=== PATIENT | male | born 1990 | race Two or more races ===

== ENCOUNTER 2025-03-13 23:00 | Inpatient (IN) | payer MEDICAID, OTHER ==
[~2025-03-13] VITALS: Ht 177.8 cm; Wt 104.2 kg
[2025-03-13] MEDS ORDERED: HYDROmorphone HCL 2 MG/ML VL/or syr IM ONE (23:15)
[2025-03-13] MEDS ORDERED: ONDANSETRON HCL 4 MG/2 ML VIAL IM ONE (23:15)
[2025-03-13 23:40] LABS: Hemoglobin 15.3 g/dL (13.5-17.5)
[2025-03-13 23:42] LABS: Hematocrit 47.5 % (41.0-53.0); Mean Corpuscular Hemoglobin 23.4 pg (28.0-32.0); Mean Corpuscular Volume 72.4 fL (80.0-100.0); Nucleated Red Blood Cells % 0.1 %
[2025-03-13 23:54] LABS: Alkaline Phosphatase 92 U/L (46-116); Anion Gap 12 (5-15); BUN/Creatinine Ratio 11.4 (10.0-20.0); Blood Urea Nitrogen 13 mg/dL (9-23); Calcium 9.3 mg/dL (8.7-10.4); Carbon Dioxide 22 mmol/L (20-31); Chloride 100 mmol/L (98-107); Lipase 42 U/L (12-53); Potassium 3.7 mmol/L (3.5-5.1); Total Protein 7.6 g/dL (5.7-8.2)
[2025-03-13 23:55] LABS: Bilirubin, Total 0.6 mg/dL (0.2-1.0)
--- NOTE | 2025-03-13 23:57 | DVH ---
COMPUTERIZED TOMOGRAPHY ABDOMEN AND PELVIS WITHOUT CONTRAST REASON FOR EXAM: Acute epigastric pain COMPARISON: None TECHNIQUE: Spiral scans were acquired from the diaphragm to the symphysis pubis without intravenous c ontrast administration. 2-D coronal and sagittal reformatted images were provided. Radiation optimiza tion: All CT scans at this facility use at least one of these dose optimization techniques: Automated exposure control mA and/or kV adjustment per patient size (includes targeted exams where dose is mat ched to clinical indication) or iterative reconstruction. RADIATION DOSE: CTDI: 19 mGy DLP: 1202 mGy-cm FINDINGS: There is mild dependent atelectasis in bilateral lower lobes of the lungs. There is no pleural effus ion. There is no pericardial effusion. The spleen is not enlarged. The liver is normal in size and contour. No calcified gallstone is identi fied. There is no pericholecystic edema. Evaluation of the abdominal organs is suboptimal in the ab sence of intravenous contrast. Unenhanced appearance of the pancreas is unremarkable. There is trace perihepatic fluid. There is trace fluid in the dependent pelvis. There is trace pneumoperitoneum in the upper abdomen adjacent to the gastric antrum and under the left hemidiaphragm. There is thickenin g of the gastric antrum. There is inflammatory change about the gastric antrum. The adrenal glands ar e normal. The kidneys are similar in size. There is no hydronephrosis of either kidney. There is no a bdominal aortic aneurysm. There is no pathologic distention of the small bowel to suggest obstruction . The prostate and seminal vesicles are within normal limits. The urinary bladder is grossly unrema rkable. The colonic stool burden is small. The appendix is not seen. No acute osseous abnormality is identified. IMPRESSION: Thickening of the gastric antrum with surrounding inflammatory change and scattered trace pneumoperit oneum and trace free fluid. This is most consistent with perforation of the gastric antrum.
[2025-03-14] VITALS (42 sets, daily range): BP systolic 108–159; BP diastolic 65–95; PULSE 88–120; RESP 14–31; TEMP 98–99.8; O2SAT 90–99
[2025-03-14 00:01] LABS: Alanine Aminotransferase 43 U/L (7-40); Albumin 5.0 g/dL (3.2-4.8); Glucose 134 mg/dL (74-106); Sodium 134 mmol/L (136-145)
[2025-03-14] MEDS: PANTOPRAZOLE 40 MG/10 ML VIAL INJ IV ONE (00:53)
[2025-03-14] MEDS: CEFEPIME 1GM/ 50ML 50 ML IV SCH (00:54)
[2025-03-14] MEDS: ONDANSETRON HCL 4 MG/2 ML VIAL IV ONE (00:54)
[2025-03-14] MEDS: VANCOMYCIN 1GM/200ML PM 200 ML IV ONE (00:54)
--- NOTE | 2025-03-14 01:15 | DVH ---
INDICATION: Shortness of breath TECHNIQUE: Frontal view of the chest. COMPARISON: None FINDINGS/IMPRESSION: Low lung volumes. Prominence of the interstitial lung markings. Unremarkable cardiomediastinal silh ouette. No pleural effusion or pneumothorax. There is lucency underlying the left hemidiaphragm, if there is clinical concern for pneumoperitoneum, CT abdomen / pelvis may be beneficial further evalua tion.
[2025-03-14] MEDS: HYDROmorphone HCL 2 MG/ML VL/or syr IV ONE ×2 (01:16→01:52)
[2025-03-14 01:20] LABS: INR 1.07 (0.9-1.15); Partial Thromboplastin Time 26.0 SEC (24.5-34.5); Prothrombin Time 11.3 sec (9.3-11.8)
[2025-03-14 01:43] LABS: Lactic Acid w/Reflex 2.5 mmol/L (0.4-2.0)
--- NOTE | 2025-03-14 01:58 | ED.PDOC ---
GI ASSESSMENT HPI Comments 34-year-old male who arrives the ED today with complaints of severe abdominal pain for the past day. Patient states he has had abdominal pain concerns over the past three days. Patient states he was seen at [facility] from day ago and sent home with a diagnosis of gastritis. Patient arrives today stating the pain has worsened. Patient denies any fever but states intermittent nausea. Patient was in pain and therefore, vital signs were mildly hypertensive, mildly tachypneic and mildly tachycardic at arrival. Chief Complaint: Abdominal Pain Time Seen by MD: 23:01 Reviewed Notes: Nurses Notes Allergies: Coded Allergies: No Known Drug Allergy (Verified Allergy, Unknown, 03/13/25) Information Source: Patient Mode of Arrival: Ambulatory Timing: Days Duration: Since onset Prehospital treatment: None Quality: Aching, Cramping Vomitus: Food Particles, Soft, Watery Severity: Severe Recent: Other (Recent gastritis diagnosis) Recent Hx of: None Pain Location: Diffuse, Epigastric Modifying Factors: Food Associated sign and symptoms: Nausea, Vomiting, Abdominal Pain Past Medical History PAST MEDICAL HISTORY: Denies Surgical History: Denies all surgeries Family History Family History: Reviewed,noncontributory to illness, No family hx of Cancer, No family hx of DM, No family hx of Heart marko, No family hx of HTN, No family hx ofKidney marko, No family hx of Liver marko, No family hx of Lung marko, No family hx of Stroke Social History Smoker: Non-Smoker Alcohol: Denies ETOH Use Drugs: Denies Drug Use Lives In: Home Constitutional: denies: chills, diaphoresis, fatigue, fever, malaise, sweats, weakness, others EENTM: denies: blurred vision, double vision, ear bleeding, ear discharge, ear drainage, ear pain, ear ringing, eye pain, eye redness, hearing loss, mouth pain, mouth swelling, nasal discharge, nose bleeding, nose congestion, nose pain, photophobia, tearing, throat pain, throat swelling, voice changes, others Respiratory: denies: cough, hemoptysis, orthopnea, SOB at rest, shortness of breath, SOB with excertion, stridor, wheezing, others Cardiovascular: denies: chest pain, dizzy spells, diaphoresis, Dyspnea on exertion, edema, irregular heart beat, left arm pain, lightheadedness, palpitations, PND, syncope, others Gastrointestinal: reports: abdominal pain, nausea, vomiting; denies: abdomen distended, blood streaked bowels, constipated, diarrhea, dysphagia, difficulty swallowing, hematemesis, melena, poor appetite, poor fluid intake, rectal bleeding, rectal pain, others Genitourinary: denies: burning, dysuria, flank pain, frequency, hematuria, incontinence, penile discharge, penile sore, pain, testicle pain, testicle s welling, urgency, others Neurological: denies: dizziness, fainting, headache, left sided numbness, left sided weakness, numbness, paresthesia, pre-existing deficit, right sided numbness, right sided weakness, seizure, speech problems, tingling, tremors, weakness, others Musculoskeletal: denies: back pain, gout, joint pain, joint swelling, muscle pain, muscle stiffness, neck pain, others Integumetry: denies: bruises, change in color, change in hair/nails, dryness, laceration, lesions, lumps, rash, wounds, others Allergic/Immunocompromised: denies: Difficulty Healing, Frequent Infections, Hives, Itching, others Hematologic/Lymphatic: denies: anemia, blood clots, easy bleeding, easy bruising, swollen glands, others Endocrine: denies: excessive hunger, excessive sweating, excessive thirst, excessive urination, flushing, intolerance to cold, intolerance to heat, unexplained weight gain, unexplained weight loss, others Psychiatric: denies: anxiety, bipolar disorder, depression, hopeless, panic disorder, schizophrenia, sleepless, suicidal, others Physical Exam General Appearance: Moderate Distress (Moderate distress due to significant abdominal pain concerns.), Normal HEENT: Normal ENT Inspection, Pharynx Normal, TMs Normal Neck: Full Range of Motion, Non-Tender, Normal, Normal Inspection Respiratory: Chest Non-Tender, Lungs Clear, No Accessory Muscle Use, No Respiratory Distress, Normal Breath Sounds Cardiovascular: No Edema, No JVD, No Murmur, No Gallop, Normal Peripheral Pulses, Regular Rate/Rhythm Breast Exam: Deferred Gastrointestinal: Other (Diffuse bilateral epigastric tenderness to palpation throughout. Abdomen was moderately rigid. No signs of trauma.) Genitalia: Deferred Pelvic: Deferred Rectal: Deferred Extremities: No calf tenderness, Normal capillary refill, Normal inspection, Normal range of motion, Non-tender, No pedal edema Neurologic: Alert, No Motor Deficits, Normal Affect, Normal Mood, No Sensory Deficits Cerebellar Function: Normal Reflexes: Normal Skin: Dry, Normal Color, Warm Lymphatic: No Adenopathy Was a procedure done? Was a procedure done?: No GI differential Dx Differential Diagnosis: Appendicitis, Bowel Obstruction, Cholangitis, Cholecystitis, Constipation, Ischemic Bowel, Pancreatitis, UTI X-Ray, Labs, Meds, VS Vital Signs Date Time Temp Pulse Resp B/P (MAP) Pulse Ox O2 Delivery O2 Flow Rate FiO2 03/14/25 01:16 90 24 125/71 03/14/25 00:35 98.6 90 24 125/71 (89) 93 98.6 03/14/25 00:35 90 24 93 Room Air* 0 21 03/13/25 23:01 97.6 92 22 145/67 94 97.6 Lab Test 03/14/25 00:52 03/13/25 23:25 Range/Units Lactic Acid Level 2.5 *H 0.4-2.0 mmol/L White Blood Count 25.5 H 4.4-10.8 10^3/uL Red Blood Count 6.57 H 4.5-5.90 10^6/uL Hemoglobin 15.3 13.5-17.5 g/dL Hematocrit 47.5 41.0-53.0 % Mean Corpuscular Volume 72.4 L 80.0-100.0 fL Mean Corpuscular Hemoglobin 23.4 L 28.0-32.0 pg Mean Corpuscular Hemoglobin Concent 32.3 32.0-36.0 g/dL Red Cell Distribution Width 16.6 H 11.8-14.3 % Platelet Count 446 140-450 10^3/uL Mean Platelet Volume 8.4 6.9-10.8 fL Neutrophils (%) (Auto) 88.7 H 37.0-80.0 % Lymphocytes (%) (Auto) 6.5 L 10.0-50.0 % Monocytes (%) (Auto) 4.4 0.0-12.0 % Eosinophils (%) (Auto) 0.1 0.0-7.0 % Basophils (%) (Auto) 0.3 0.0-2.0 % Neutrophils # (Auto) 22.6 H 1.6-8.6 10 ^3/uL Lymphocytes # (Auto) 1.7 0.4-5.4 10 ^3/uL Monocytes # (Auto) 1.1 0-1.3 10 ^3/uL Eosinophils # (Auto) 0 0-0.8 10 ^3/uL Basophils # (Auto) 0.1 0-0.2 10 ^3/uL Nucleated Red Blood Cells 0.1 % Prothrombin Time 11.3 9.3-11.8 sec Prothrombin Time INR 1.07 0.9-1.15 Activated Partial Thromboplast Time 26.0 24.5-34.5 SEC Sodium Level 134 L 136-145 mmol/L Potassium Level 3.7 3.5-5.1 mmol/L Chloride Level 100 98-107 mmol/L Carbon Dioxide Level 22 20-31 mmol/L Anion Gap 12 5-15 Blood Urea Nitrogen 13 9-23 mg/dL Creatinine 1.14 0.700-1.30 mg/dL Glomerular Filtration Rate Calc 87 >90 mL/min BUN/Creatinine Ratio 11.4 10.0-20.0 Serum Glucose 134 H 74-106 mg/dL Calcium Level 9.3 8.7-10.4 mg/dL Total Bilirubin 0.6 0.2-1.0 mg/dL Aspartate Amino Transferase (AST) 26 13-40 U/L Alanine Aminotransferase (ALT) 43 H 7-40 U/L Alkaline Phosphatase 92 46-116 U/L Total Protein 7.6 5.7-8.2 g/dL Albumin 5.0 H 3.2-4.8 g/dL Lipase 42 12-53 U/L Current Medications Medications (Trade) Dose Ordered Sig/Caryl Route Start Time Stop Time Status Last Admin Vancomycin HCl 200 ml @ 200 mls/hr ONCE ONCE IV 03/14/25 00:45 03/14/25 01:44 DC 03/14/25 00:54 Hydromorphone HCl (Dilaudid Injection) 1 mg ONCE ONCE IV 03/14/25 00:45 03/14/25 00:46 DC 03/14/25 01:16 Ondansetron HCl (Zofran) 4 mg ONCE ONCE IV 03/14/25 00:45 03/14/25 00:46 DC 03/14/25 00:54 Pantoprazole Sodium (Protonix) 40 mg ONCE ONCE IV 03/14/25 00:45 03/14/25 00:46 DC 03/14/25 00:53 X-Ray, Labs, Meds, VS Comment All studies performed the ED were evaluated by me personally. [place] studies [place] [id number]. Additional findings of elevated lactic acid were noted. CT of the abdomen and pelvis revealed a thickening of the gastric antrum with surrounding inflammatory changes and scattered trace pneumoperitoneum and trace free fluid. This seems to be consistent with a perforation of the gastric antrum. Patient will be admitted for pain management as well as GI consultation to assess possible surgical needs. Time of 1ST Reevaluation: 01:55 Reevaluation 1ST: Improved Consultation: PCP, Surgery Patient Education/Counseling: Diagnosis, Treatment Family Education/Counseling: Diagnosis, Treatment SEPSIS Sepsis Screen Date sepsis recognized/suspect: Mar 14, 2025 Time Sepsis recognized/suspect: 131 Recent Procedure: No On Antibiotic Therapy: Yes Respiratory Rate >20: Yes Heart Rate >90: No Temp<36 C (96.8 F) or >38.3 C: No SBP <90 or MAP <65 mmHG: No New Acute Mental Status Change: No Is the patient on CPAP, BIPAP,: No Physician Orders Urinalysis (03/13/25 23:12) Ct Ab Pel Wo Con-No Oral Or Iv (03/13/25 23:12) Urinalysis (03/14/25 00:32) Chest Portable (03/14/25 00:32) Accucheck (03/14/25 00:32) Blood Culture (03/14/25 00:32) Cefepime 1gm/ 50ml (Maxipime 1gm/50ml) (03/14/25 01:00) Notify Md If Map <65 Or Bp<90 (03/14/25 00:32) If Map<65 Start Vasopressor (03/14/25 00:32) Sepsis Reassesment After Fluid (03/14/25 01:32) Sodium Chloride 0.9% (03/14/25 00:45) Hydromorphone Injection (Dilaudid Inject (03/14/25 02:00) Sodium Chloride 0.9% (03/14/25 02:00) Npo (Nothing By Mouth) Diet (03/14/25 Breakfast) Vital Signs Date Time Temp Pulse Resp B/P (MAP) Pulse Ox O2 Delivery O2 Flow Rate FiO2 03/14/25 01:16 90 24 125/71 03/14/25 00:35 98.6 90 24 125/71 (89) 93 98.6 03/14/25 00:35 90 24 93 Room Air* 0 21 03/13/25 23:01 97.6 92 22 145/67 94 97.6 Laboratory Tests Test 03/13/25 23:25 03/14/25 00:52 White Blood Count 25.5 10^3/uL (4.4-10.8) H Lactic Acid Level 2.5 mmol/L (0.4-2.0) *H Medications Medications Dose Ordered Sig/Caryl Route Start Time Stop Time Status Last Admin Dose Admin Hydromorphone HCl 1 mg ONCE ONCE IV 03/14/25 00:45 03/14/25 00:46 DC 03/14/25 01:16 Ondansetron HCl 4 mg ONCE ONCE IV 03/14/25 00:45 03/14/25 00:46 DC 03/14/25 00:54 Pantoprazole Sodium 40 mg ONCE ONCE IV 03/14/25 00:45 03/14/25 00:46 DC 03/14/25 00:53 Vancomycin HCl 200 ml @ 200 mls/hr ONCE ONCE IV 03/14/25 00:45 03/14/25 01:44 DC 03/14/25 00:54 Departure 1 Departure Time of Disposition: 01:56 Impression: Primary Impression: Gastric perforation Additional Impressions: Leukocytosis Elevated lactic acid level Disposition: ADMITTED INPATIENT Condition: Fair Discharged With: Self, Spouse Critical Care Note Critical Care Time?: No Stability Stability form required: No Heart Score Heart Score: Heart Score Response (Comments) Value History N/A 0 EKG N/A 0 Age N/A 0 Risk Factors N/A 0 Troponin N/A 0 Total 0 BELKIS BENSON PAC Mar 14, 2025 01:57
[2025-03-14] MEDS: SODIUM CHLORIDE 0.9% 1,000 ML IV ONE ×3 (02:00→20:35)
[2025-03-14] MEDS ORDERED: ACETAMINOPHEN 325 MG TAB PO PRN (03:15)
[2025-03-14] MEDS ORDERED: DOCUSATE SOD 100 MG CAP PO PRN (03:15)
[2025-03-14] MEDS: SODIUM CHLORIDE 0.9% 1,000 ML IV SCH (03:15)
[2025-03-14] MEDS ORDERED: ONDANSETRON HCL 4 MG/2 ML VIAL IV PRN (03:15)
[2025-03-14] MEDS: LACTATED RINGER'S 2,200 ML IV ONE (03:25)
[2025-03-14] MEDS: HYDROcodone-ACET 5/325MG TAB PO PRN (03:30)
[2025-03-14] MEDS: HYDROmorphone HCL 2 MG/ML VL/or syr IV PRN ×2 (03:54→15:48)
[2025-03-14 04:28] LABS: Urine Protein, UAD TRACE (Negative)
[2025-03-14] MEDS ORDERED: NITROGLYCERIN 0.4 MG SL TAB SL PRN (05:30)
[2025-03-14] MEDS ORDERED: MORPHINE SULFATE INJ 2 MG/ml SYRG IV PRN ×2 (05:30→12:45)
--- NOTE | 2025-03-14 05:30 | DVHHP2 ---
History of Present Illness Reason for Visit: Gastric perforation History of Present Illness The patient is a 34-year-old male who denies past medical history presented to [facility] ED with complaint of severe abdominal pain. Patient reports he has been experiencing abdominal pain for the past 3 days, rating 9/10 numeric scale, intermittent nausea, getting worse that prompted this visit. Patient was seen and evaluated in the ED, laboratory data shows WBC 25.5, platelets 446, sodium 134, potassium 3.7, BUN 13, creatinine 1.14, glucose 134, lactic acid 2.5 trending down to 1.7, calcium 9.3, lipase 42, blood pressure 125/71, heart rate 92, temperature 98.6 F, O2 saturation 95% on room air. Abdomen/pelvis CT revealing thickening of the gastric antrum with surrounding inflammatory changes and scattered trace pneumoperitoneum and trace free fluid; this is most consistent perforation of the gastric antrum. Patient was started on IV antibiotic regimen Flagyl, please see medication orders section in the computer. On my assessment, patient denied chest pain, no headache, no dizziness, no shortness of breath, no diaphoresis, no diarrhea, no nausea, no vomiting, no fever, no chills. Patient was admitted for further evaluation and medical management. Past Medical History Denies past medical history Past Surgical History Denies all surgeries Family History Reviewed, noncontributory to the management of this case. Past Social History The patient lives at home, denies smoking, alcohol or illicit drugs abuse. Review of Systems Constitutional: No: Fever, Chills, Sweats, Weakness, Malaise, Other Eyes: No: Pain, Vision change, Conjunctivae inflammation, Eyelid inflammation, Other, Redness ENT: No: Ear pain, Ear discharge, Nose pain, Nose discharge, Nose congestion, Mouth pain, Mouth swelling, Throat pain, Throat swelling, Other Respiratory: No: Cough, Dry, Shortness of breath, SOB with excertion, Wheezing, Hemoptysis, Pleuritic Pain, Sputum, Wheezing, Other Cardiovascular: No: Chest Pain, Palpitations, Orthopnea, Paroxysmal Noc. Dyspnea, Edema, Lt Headedness, Other Gastrointestinal: Nausea, Abdominal Pain; No: Vomiting, Diarrhea, Constipation, Melena, Hematochezia, Other Genitourinary: No Dysuria, No Frequency, No Incontinence, No Hematuria, No Retention, No Other Musculoskeletal: No: other, neck pain, shoulder pain, arm pain, back pain, hand pain, leg pain, foot pain Skin: No: Rash, Lesions, Jaundice, Bruising, Other Neurological: No: Weakness, Numbness, Incoordination, Change in speech, Confusion, Seizures, Other Allergies: Coded Allergies: No Known Drug Allergy (Verified Allergy, Unknown, 03/13/25) Medications Current Medications Medications Dose Ordered Sig/Caryl Route Start Time Stop Time Status Last Admin Dose Admin Cefepime HCl 50 ml @ 12.5 mls/hr Q8HR@0100,0900,1700 IV 03/14/25 01:00 03/14/25 02:18 12.5 MLS/HR Metronidazole 100 ml @ 100 mls/hr Q8HR IV 03/14/25 14:00 Hydromorphone HCl 0.5 mg Q4HPRN PRN IV 03/14/25 03:15 03/14/25 03:54 0.5 MG Pantoprazole Sodium 40 mg DAILY IV 03/14/25 10:00 Sodium Chloride 1,000 ml @ 120 mls/hr Q8H20M IV 03/14/25 03:15 Acetaminophen/ Hydrocodone Bitart 1 tab Q4HP PRN PO 03/14/25 03:15 03/14/25 03:30 1 TAB Ondansetron HCl 4 mg Q4HP PRN IV 03/14/25 03:15 Docusate Sodium 100 mg BIDPRN PRN PO 03/14/25 03:15 Acetaminophen 650 mg Q6HP PRN PO 03/14/25 03:15 Exam Vital Signs Vital Signs Date Time Temp Pulse Resp B/P (MAP) Pulse Ox O2 Delivery O2 Flow Rate FiO2 03/14/25 04:24 84 32 126/94 03/14/25 04:00 96 03/14/25 00:35 98.6 98.6 03/14/25 00:35 Room Air* 0 21 General Appearance: Alert, Oriented X3, Cooperative, No acute distress HEENT: Atraumatic, PERRLA, EOMI, Mucous membr. moist/pink Respiratory: Clear to auscultation, Normal air movement Cardiovascular: Regular rate, Normal S1, Normal S2, No murmurs Abdominal: Normal bowel sounds, Soft, No hepatospenomegaly, No masses, Other (Reports tenderness) Extremities: No clubbing, No cyanosis, No edema, Normal pulses, No tenderness/swelling Skin: No rashes, No breakdown, No significant lesion Neuro: Normal gait, Normal speech, Strength at 5/5 X4 ext, Normal tone, Sensat ion intact, Cranial nerves 3-12 NL, Reflexes 2+ Psych/Mental Status: Mental status NL, Mood NL Labs/Xrays Labs Test 03/14/25 04:10 03/14/25 03:50 03/13/25 23:25 Range/Units Urine Color Yellow Yellow Urine Clarity Clear Clear Urine pH 5.5 5.0-9.0 Urine Specific [place] 1.037 H 1.001-1.035 Urine Protein Trace H Negative Urine Ketones Negative Negative Urine Blood Negative Negative /uL Urine Nitrite Negative Negative Urine Bilirubin Negative Negative Urine Urobilinogen Normal Negative mg/dL Urine Leukocyte Esterase Negative Negative /uL Urine RBC 1 0 - 3 /hpf Urine Microscopic WBC 6 H 0-3 /HPF Urine Squamous Epithelial Cells Few <5 /hpf Urine Bacteria None seen None Seen /hpf Urine Hyaline Casts Few 0 - 2 /lpf Urine Mucus Few None Seen Urine Glucose Normal Normal mg/dL Lactic Acid Level 1.7 0.4-2.0 mmol/L White Blood Count 25.5 H 4.4-10.8 10^3/uL Red Blood Count 6.57 H 4.5-5.90 10^6/uL Hemoglobin 15.3 13.5-17.5 g/dL Hematocrit 47.5 41.0-53.0 % Mean Corpuscular Volume 72.4 L 80.0-100.0 fL Mean Corpuscular Hemoglobin 23.4 L 28.0-32.0 pg Mean Corpuscular Hemoglobin Concent 32.3 32.0-36.0 g/dL Red Cell Distribution Width 16.6 H 11.8-14.3 % Platelet Count 446 140-450 10^3/uL Mean Platelet Volume 8.4 6.9-10.8 fL Neutrophils (%) (Auto) 88.7 H 37.0-80.0 % Lymphocytes (%) (Auto) 6.5 L 10.0-50.0 % Monocytes (%) (Auto) 4.4 0.0-12.0 % Eosinophils (%) (Auto) 0.1 0.0-7.0 % Basophils (%) (Auto) 0.3 0.0-2.0 % Neutrophils # (Auto) 22.6 H 1.6-8.6 10 ^3/uL Lymphocytes # (Auto) 1.7 0.4-5.4 10 ^3/uL Monocytes # (Auto) 1.1 0-1.3 10 ^3/uL Eosinophils # (Auto) 0 0-0.8 10 ^3/uL Basophils # (Auto) 0.1 0-0.2 10 ^3/uL Nucleated Red Blood Cells 0.1 % Prothrombin Time 11.3 9.3-11.8 sec Prothrombin Time INR 1.07 0.9-1.15 Activated Partial Thromboplast Time 26.0 24.5-34.5 SEC Sodium Level 134 L 136-145 mmol/L Potassium Level 3.7 3.5-5.1 mmol/L Chloride Level 100 98-107 mmol/L Carbon Dioxide Level 22 20-31 mmol/L Anion Gap 12 5-15 Blood Urea Nitrogen 13 9-23 mg/dL Creatinine 1.14 0.700-1.30 mg/dL Glomerular Filtration Rate Calc 87 >90 mL/min BUN/Creatinine Ratio 11.4 10.0-20.0 Serum Glucose 134 H 74-106 mg/dL Calcium Level 9.3 8.7-10.4 mg/dL Total Bilirubin 0.6 0.2-1.0 mg/dL Aspartate Amino Transferase (AST) 26 13-40 U/L Alanine Aminotransferase (ALT) 43 H 7-40 U/L Alkaline Phosphatase 92 46-116 U/L Total Protein 7.6 5.7-8.2 g/dL Albumin 5.0 H 3.2-4.8 g/dL Lipase 42 12-53 U/L PATIENT: MICHAEL HODGSON ACCT: [id number] UNIT: [id number] : 1990 LOC: ER ROOM / BED: / AGE / SEX: 34 / M ADM STATUS: REG ER SERVICE [id number] ORDERING PHYSICIAN: BELKIS BENSON PAC PROCEDURE(s): ABPL - CT AB PEL WO CON-NO ORAL OR IV REASON: Acute epigastric pain ORDER NUMBER(s): [id number], ACCESSION NUMBER(s): [id number] COMPUTERIZED TOMOGRAPHY ABDOMEN AND PELVIS WITHOUT CONTRAST REASON FOR EXAM: Acute epigastric pain COMPARISON: None TECHNIQUE: Spiral scans were acquired from the diaphragm to the symphysis pubis without intravenous contrast administration. 2-D coronal and sagittal reformatted images were provided. Radiation optimization: All CT scans at this facility use at least one of these dose optimization techniques: Automated exposure control mA and/or kV adjustment per patient size (includes targeted exams where dose is matched to clinical indication) or iterative reconstruction. RADIATION DOSE: CTDI: 19 mGy DLP: 1202 mGy-cm FINDINGS: There is mild dependent atelectasis in bilateral lower lobes of the lungs. There is no pleural effusion. There is no pericardial effusion. The spleen is not enlarged. The liver is normal in size and contour. No calcified gallstone is identified. There is no pericholecystic edema. Evaluation of the abdominal organs is suboptimal in the absence of intravenous contrast. Unenhanced appearance of the pancreas is unremarkable. There is trace perihepatic fluid. There is trace fluid in the dependent pelvis. There is trace pneumoperitoneum in the upper abdomen adjacent to the gastric antrum and under the left hemidiaphragm. There is thickening of the gastric antrum. There is inflammatory change about the gastric antrum. The adrenal glands are normal. The kidneys are similar in size. There is no hydronephrosis of either kidney. There is no abdominal aortic aneurysm. There is no pathologic distention of the small bowel to suggest obstruction. The prostate and seminal vesicles are within normal limits. The urinary bladder is grossly unremarkable. The colonic stool burden is small. The appendix is not seen. No acute osseous abnormality is i dentified. IMPRESSION: Thickening of the gastric antrum with surrounding inflammatory change and scattered trace pneumoperitoneum and trace free fluid. This is most consistent with perforation of the gastric antrum. ORDERING PHYSICIAN: BELKIS BENSON PAC PROCEDURE(s): CXRP - CHEST PORTABLE REASON: Shortness of breath ORDER NUMBER(s): [id number], ACCESSION NUMBER(s): [id number] INDICATION: Shortness of breath TECHNIQUE: Frontal view of the chest. COMPARISON: None FINDINGS/IMPRESSION: Low lung volumes. Prominence of the interstitial lung markings. Unremarkable cardiomediastinal silhouette. No pleural effusion or pneumothorax. There is lucency underlying the left hemidiaphragm, if there is clinical concern for pneumoperitoneum, CT abdomen/pelvis may be beneficial further evaluation. SEPSIS Sepsis Screen Date sepsis recognized/suspect: Mar 14, 2025 Time Sepsis recognized/suspect: 131 Recent Procedure: No On Antibiotic Therapy: Yes Respiratory Rate >20: Yes Heart Rate >90: No Temp<36 C (96.8 F) or >38.3 C: No SBP <90 or MAP <65 mmHG: No New Acute Mental Status Change: No Is the patient on CPAP, BIPAP,: No Physician Orders Ct Ab Pel Wo Con-No Oral Or Iv (03/13/25 23:12) Chest Portable (03/14/25 00:32) Accucheck (03/14/25 00:32) Blood Culture (03/14/25 00:32) Cefepime 1gm/ 50ml (Maxipime 1gm/50ml) (03/14/25 01:00) Notify Md If Map <65 Or Bp<90 (03/14/25 00:32) If Map<65 Start Vasopressor (03/14/25 00:32) Sepsis Reassesment After Fluid (03/14/25 01:32) Sodium Chloride 0.9% (03/14/25 00:45) Sodium Chloride 0.9% (03/14/25 02:00) Metronidazole 500mg/100ml (Flagyl 500mg/ (03/14/25 14:00) Hydromorphone Injection (Dilaudid Inject (03/14/25 03:15) Pantoprazole (Protonix) (03/14/25 10:00) * Surgical Consult (03/14/25 ) Allergies (03/14/25 03:01) Code Status (03/14/25 03:01) Sodium Chloride 0.9% (03/14/25 03:15) Oxygen Per Hour (03/14/25 03:01) Hydrocodone-Acet 5/325mg Tab ([place] 5/32 (03/14/25 03:15) Ondansetron Hcl (Zofran) (03/14/25 03:15) Docusate Sodium Capsule (Colace Capsule) (03/14/25 03:15) Complete Blood Count (03/15/25 04:00) Comprehensive Metabolic Panel (03/15/25 04:00) Condition: Serious (03/14/25 03:01) Acetaminophen Tablet (Tylenol Tablet) (03/14/25 03:15) Clear Liq Diet (03/14/25 Breakfast) Bedrest With Bathroom Privileg (03/14/25 03:01) Sequential Compression Device (03/14/25 ) Vital Signs Date Time Temp Pulse Resp B/P (MAP) Pulse Ox O2 Delivery O2 Flow Rate FiO2 03/14/25 04:24 84 32 126/94 03/14/25 04:00 84 29 126/94 (105) 96 03/14/25 03:54 95 22 149/82 03/14/25 02:00 89 30 143/78 (99) 95 03/14/25 01:52 91 14 125/71 03/14/25 01:16 90 24 125/71 03/14/25 00:35 98.6 90 24 125/71 (89) 93 98.6 03/14/25 00:35 90 24 93 Room Air* 0 21 03/13/25 23:01 97.6 92 22 145/67 94 97.6 Laboratory Tests Test 03/13/25 23:25 03/14/25 00:52 03/14/25 03:50 White Blood Count 25.5 10^3/uL (4.4-10.8) H Lactic Acid Level 2.5 mmol/L (0.4-2.0) *H 1.7 mmol/L (0.4-2.0) Medications Medications Dose Ordered Sig/Caryl Route Start Time Stop Time Status Last Admin Dose Admin Acetaminophen/ Hydrocodone Bitart 1 tab Q4HP PRN PO 03/14/25 03:15 03/14/25 03:30 1 TAB Cefepime HCl 50 ml @ 12.5 mls/hr Q8HR@0100,0900,1700 IV 03/14/25 01:00 03/14/25 02:18 12.5 MLS/HR Hydromorphone HCl 0.5 mg Q4HPRN PRN IV 03/14/25 03:15 03/14/25 03:54 0.5 MG Hydromorphone HCl 1 mg ONCE ONCE IV 03/14/25 00:45 03/14/25 00:46 DC 03/14/25 01:16 1 MG Hydromorphone HCl 1 mg ONCE ONCE IV 03/14/25 02:00 03/14/25 02:01 DC 03/14/25 01:52 1 MG Lactated Ringer's 2,200 ml @ 2,200 mls/hr ONCE ONCE IV 03/14/25 00:45 03/14/25 01:44 DC 03/14/25 03:25 2,200 MLS/HR Metronidazole 100 ml @ 100 mls/hr ONCE ONCE IV 03/14/25 03:30 03/14/25 04:29 DC 03/14/25 04:01 100 MLS/HR Ondansetron HCl 4 mg ONCE ONCE IV 03/14/25 00:45 03/14/25 00:46 WA 03/14/25 00:54 4 MG Pantoprazole Sodium 40 mg ONCE ONCE IV 03/14/25 00:45 03/14/25 00:46 WA 03/14/25 00:53 40 MG Sodium Chloride 1,000 ml @ 150 mls/hr Q6H40M ONCE IV 03/14/25 00:45 03/14/25 07:24 03/14/25 05:24 150 MLS/HR Vancomycin HCl 200 ml @ 200 mls/hr ONCE ONCE IV 03/14/25 00:45 03/14/25 01:44 DC 03/14/25 00:54 200 MLS/HR Assessment/Plan Assessment/Plan Gastric perforation Acute abdominal pain Leukocytosis, unspecified Elevated lactic acid level Plan 1. Admit to telemetry unit 2. Breathing treatment 3. Pain control management 4. IV antibiotic management 5. Management of fluids and electrolytes 6. Consultation for surgery/hospitalist 7. Diagnostic test abdomen/pelvis CT 8. DVT prophylaxis on SCDs 9. Repeat labs CBC, CMP in a.m. 10. Home medication reviewed and reconciled 11. Continue with current medical management 12. Treatment plan discussed with patient and RN. Patient verbalized understanding. Plan discussed with: Patient, Spouse ( at bedside), Other (RN) My Orders Orders - KAREN CRAIG DNP Procedure Category Date Status Time Metronidazole PHA 03/14/25 In Process 500mg/100ml (Flagyl 14:00 Hydromorphone PHA 03/14/25 In Process Injection (Dilaudid 03:15 Pantoprazole PHA 03/14/25 In Process (Protonix) 10:00 * Surgical Consult CONS 03/14/25 Transmitted Allergies JEANETTE 03/14/25 In Process 03:01 Code Status CODE 03/14/25 Transmitted 03:01 Sodium Chloride 0.9% PHA 03/14/25 In Process 03:15 Oxygen Per Hour RT 03/14/25 Transmitted 03:01 Hydrocodone-Acet PHA 03/14/25 In Process 5/325mg Tab ([place] 03:15 Ondansetron Hcl PHA 03/14/25 In Process (Zofran) 03:15 Docusate Sodium PHA 03/14/25 In Process Capsule (Colace 03:15 Complete Blood Count LAB 03/15/25 Verified 04:00 Comprehensive LAB 03/15/25 Verified Metabolic Panel 04:00 Condition: Serious JEANETTE 03/14/25 In Process 03:01 Acetaminophen Tablet PHA 03/14/25 In Process (Tylenol Tablet) 03:15 Clear Liq Diet DIET 03/14/25 Transmitted Breakfast Bedrest With Bathroom JEANETTE 03/14/25 In Process Privileg 03:01 Sequential JEANETTE 03/14/25 In Process Compression Device Problem List: (1) Gastric perforation (2) Acute abdominal pain (3) Leukocytosis, unspecified (4) Elevated lactic acid level Date of Service: Mar 14, 2025 Billing Provider: KAREN CRAIG DNP Common Visit Codes: [id number] INP/OBS CARE (HIGH) KAREN CRAIG DNP Mar 14, 2025 05:30
[2025-03-14] MEDS ORDERED: METOCLOPRAMIDE HCL 5MG/ml INJ 2ml VIAL IV PRN (07:15)
--- NOTE | 2025-03-14 11:14 | DVHINCON2 ---
Date of service: Mar 14, 2025 Allergies: Coded Allergies: No Known Drug Allergy (Verified Allergy, Unknown, 03/13/25) Current Medications Current Medications Medications (Trade) Dose Ordered Sig/Caryl Route PRN Reason Start Time Stop Time Status Last Admin Cefepime HCl 50 ml @ 12.5 mls/hr Q8HR@0100,0900,1700 IV 03/14/25 01:00 03/14/25 10:01 Metronidazole 100 ml @ 100 mls/hr Q8HR IV 03/14/25 14:00 Hydromorphone HCl (Dilaudid Injection) 0.5 mg Q4HPRN PRN IV SEVERE PAIN (7-10 PAIN SCALE) 03/14/25 03:15 03/14/25 09:26 Pantoprazole Sodium (Protonix) 40 mg DAILY IV 03/14/25 10:00 Sodium Chloride 1,000 ml @ 120 mls/hr Q8H20M IV 03/14/25 03:15 Acetaminophen/ Hydrocodone Bitart ([place] 5/325MG Tab) 1 tab Q4HP PRN PO MODERATE PAIN (4-6 PAIN SCALE) 03/14/25 03:15 03/14/25 08:47 Ondansetron HCl (Zofran) 4 mg Q4HP PRN IV NAUSEA / VOMITING 03/14/25 03:15 Hold Docusate Sodium (Colace Capsule) 100 mg BIDPRN PRN PO FOR CONSTIPATION 03/14/25 03:15 Acetaminophen (Tylenol Tablet) 650 mg Q6HP PRN PO PAIN SCALE 1-3 OR TEMP>100.4 03/14/25 03:15 Nitroglycerin (Ntrostat Sublingual) 0.4 mg Q5MINP PRN SL FOR CHEST PAIN 03/14/25 05:30 Morphine Sulfate 2 mg Q30M PRN IV FOR CHEST PAIN 03/14/25 05:30 Metoclopramide HCl (Reglan Injection) 10 mg Q6HPRN PRN IV NAUSEA / VOMITING 03/14/25 07:15 Vital Signs Vital Signs Date Time Temp Pulse Resp B/P (MAP) Pulse Ox O2 Delivery O2 Flow Rate FiO2 03/14/25 09:26 89 20 152/82 03/14/25 07:30 92 Room Air* 0 21 03/14/25 07:30 98.4 98.4 Labs/Diagnostic Data Labs Test 03/14/25 04:10 03/14/25 03:50 03/13/25 23:25 Range/Units Urine Color Yellow Yellow Urine Clarity Clear Clear Urine pH 5.5 5.0-9.0 Urine Specific [place] 1.037 H 1.001-1.035 Urine Protein Trace H Negative Urine Ketones Negative Negative Urine Blood Negative Negative /uL Urine Nitrite Negative Negative Urine Bilirubin Negative Negative Urine Urobilinogen Normal Negative mg/dL Urine Leukocyte Esterase Negative Negative /uL Urine RBC 1 0 - 3 /hpf Urine Microscopic WBC 6 H 0-3 /HPF Urine Squamous Epithelial Cells Few <5 /hpf Urine Bacteria None seen None Seen /hpf Urine Hyaline Casts Few 0 - 2 /lpf Urine Mucus Few None Seen Urine Glucose Normal Normal mg/dL Lactic Acid Level 1.7 0.4-2.0 mmol/L White Blood Count 25.5 H 4.4-10.8 10^3/uL Red Blood Count 6.57 H 4.5-5.90 10^6/uL Hemoglobin 15.3 13.5-17.5 g/dL Hematocrit 47.5 41.0-53.0 % Mean Corpuscular Volume 72.4 L 80.0-100.0 fL Mean Corpuscular Hemoglobin 23.4 L 28.0-32.0 pg Mean Corpuscular Hemoglobin Concent 32.3 32.0-36.0 g/dL Red Cell Distribution Width 16.6 H 11.8-14.3 % Platelet Count 446 140-450 10^3/uL Mean Platelet Volume 8.4 6.9-10.8 fL Neutrophils (%) (Auto) 88.7 H 37.0-80.0 % Lymphocytes (%) (Auto) 6.5 L 10.0-50.0 % Monocytes (%) (Auto) 4.4 0.0-12.0 % Eosinophils (%) (Auto) 0.1 0.0-7.0 % Basophils (%) (Auto) 0.3 0.0-2.0 % Neutrophils # (Auto) 22.6 H 1.6-8.6 10 ^3/uL Lymphocytes # (Auto) 1.7 0.4-5.4 10 ^3/uL Monocytes # (Auto) 1.1 0-1.3 10 ^3/uL Eosinophils # (Auto) 0 0-0.8 10 ^3/uL Basophils # (Auto) 0.1 0-0.2 10 ^3/uL Nucleated Red Blood Cells 0.1 % Prothrombin Time 11.3 9.3-11.8 sec Prothrombin Time INR 1.07 0.9-1.15 Activated Partial Thromboplast Time 26.0 24.5-34.5 SEC Sodium Level 134 L 136-145 mmol/L Potassium Level 3.7 3.5-5.1 mmol/L Chloride Level 100 98-107 mmol/L Carbon Dioxide Level 22 20-31 mmol/L Anion Gap 12 5-15 Blood Urea Nitrogen 13 9-23 mg/dL Creatinine 1.14 0.700-1.30 mg/dL Glomerular Filtration Rate Calc 87 >90 mL/min BUN/Creatinine Ratio 11.4 10.0-20.0 Serum Glucose 134 H 74-106 mg/dL Calcium Level 9.3 8.7-10.4 mg/dL Total Bilirubin 0.6 0.2-1.0 mg/dL Aspartate Amino Transferase (AST) 26 13-40 U/L Alanine Aminotransferase (ALT) 43 H 7-40 U/L Alkaline Phosphatase 92 46-116 U/L Total Protein 7.6 5.7-8.2 g/dL Albumin 5.0 H 3.2-4.8 g/dL Lipase 42 12-53 U/L Assessment [id number] C/O RUQ PAIN AFEBRILE VSS ABD SOFT TENDER RUQ CT SCAN R/O GASTRIC ANTRUM PERFORATION/GASTRITIS WBC ELEVATED SEEN AT [facility] BEFORE COMING HERE CT SCAN AT [facility] REQUESTED PT CONSIDERING TRANSFER TO [facility] CONSIDER EMERGENT SURGERY BASED ON ONGOING EVAL NPO NG PROTONIX Plan discussed with: Patient HARESH TAYLOR MD Mar 14, 2025 11:14
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
[2025-03-14] MEDS: MORPHINE SULFATE INJ 2 MG/ml SYRG IV PRN (12:57)
[2025-03-14] MEDS: PANTOPRAZOLE 40 MG/10 ML VIAL INJ IV SCH (13:02)
[2025-03-14] MEDS: PIPERACILLIN-TAZOB 3.375GM 100 ML IV ONE (13:03)
[2025-03-14] MEDS ORDERED: HYDROmorphone HCL 2 MG/ML VL/or syr IV PRN (15:00)
[2025-03-14] MEDS: PIPERACILLIN-TAZOB 3.375GM 100 ML IV SCH (16:00)
--- NOTE | 2025-03-14 16:14 | DVH ---
Date: 03/14/2025 03:47 PM Examination: XY KUB ABDOMEN SINGLE VIEW History: SBO Comparison: CT CT AB PEL WO CON-NO ORAL OR IV on DOS: 03/13/25 TECHNIQUE: Frontal views of the abdomen was obtained. FINDINGS: Enteric tube in the stomach. Stomach may contain small amount of gas or may be completely decompresse d consider addition of oral contrast for further evaluation The lung bases are unremarkable. No acute osseous abnormality identified. IMPRESSION: 1. Enteric tube in the stomach. Findings may represent complete gastric decompression or persistent s mall amount of gastric air. Recommend either follow-up study or additional oral contrast for further evaluation. HS:Y
[2025-03-14 17:25] LABS: Alanine Aminotransferase 33 U/L (7-40); Albumin 4.3 g/dL (3.2-4.8); Alkaline Phosphatase 72 U/L (46-116); Anion Gap 9 (5-15); BUN/Creatinine Ratio 13.3 (10.0-20.0); Blood Urea Nitrogen 13 mg/dL (9-23); Calcium 8.8 mg/dL (8.7-10.4); Carbon Dioxide 24 mmol/L (20-31); Chloride 101 mmol/L (98-107); Magnesium 1.8 mg/dL (1.6-2.6); Potassium 4.1 mmol/L (3.5-5.1); Total Protein 6.6 g/dL (5.7-8.2)
[2025-03-14 17:46] LABS: Hematocrit 40.3 % (41.0-53.0); Hemoglobin 13.1 g/dL (13.5-17.5); Mean Corpuscular Hemoglobin 23.4 pg (28.0-32.0); Mean Corpuscular Volume 72.0 fL (80.0-100.0); Nucleated Red Blood Cells % 0.0 %
[2025-03-14 17:48] LABS: Bilirubin, Total 1.2 mg/dL (0.2-1.0); Glucose 117 mg/dL (74-106); Sodium 134 mmol/L (136-145)
--- NOTE | 2025-03-14 18:41 | DVHDS2 ---
Discharge Summary Date of Admission Mar 14, 2025 at 05:29 Date of Discharge: Mar 14, 2025 Labs/Diagnostic Data: Laboratory Results Test 03/14/25 18:24 03/14/25 16:40 03/14/25 04:10 03/13/25 23:25 White Blood Count 23.5 10^3/uL (4.4-10.8) Red Blood Count 5.59 10^6/uL (4.5-5.90) Hemoglobin 13.1 g/dL (13.5-17.5) Hematocrit 40.3 % (41.0-53.0) Mean Corpuscular Volume 72.0 fL (80.0-100.0) Mean Corpuscular Hemoglobin 23.4 pg (28.0-32.0) Mean Corpuscular Hemoglobin Concent 32.5 g/dL (32.0-36.0) Red Cell Distribution Width 16.8 % (11.8-14.3) Platelet Count 367 10^3/uL (140-450) Mean Platelet Volume 8.5 fL (6.9-10.8) Neutrophils (%) (Auto) 91.5 % (37.0-80.0) Lymphocytes (%) (Auto) 3.4 % (10.0-50.0) Monocytes (%) (Auto) 5.0 % (0.0-12.0) Eosinophils (%) (Auto) 0.0 % (0.0-7.0) Basophils (%) (Auto) 0.1 % (0.0-2.0) Neutrophils # (Auto) 21.5 10 ^3/uL (1.6-8.6) Lymphocytes # (Auto) 0.8 10 ^3/uL (0.4-5.4) Monocytes # (Auto) 1.2 10 ^3/uL (0-1.3) Eosinophils # (Auto) 0 10 ^3/uL (0-0.8) Basophils # (Auto) 0 10 ^3/uL (0-0.2) Nucleated Red Blood Cells 0.0 % Sodium Level 134 mmol/L (136-145) Potassium Level 4.1 mmol/L (3.5-5.1) Chloride Level 101 mmol/L (98-107) Carbon Dioxide Level 24 mmol/L (20-31) Anion Gap 9 (5-15) Blood Urea Nitrogen 13 mg/dL (9-23) Creatinine 0.98 mg/dL (0.700-1.30) Glomerular Filtration Rate Calc 104 mL/min (>90) BUN/Creatinine Ratio 13.3 (10.0-20.0) Serum Glucose 117 mg/dL (74-106) Lactic Acid Level 1.8 mmol/L (0.4-2.0) Calcium Level 8.8 mg/dL (8.7-10.4) Phosphorus Level 3.6 mg/dL (2.4-5.1) Magnesium Level 1.8 mg/dL (1.6-2.6) Total Bilirubin 1.2 mg/dL (0.2-1.0) Aspartate Amino Transferase (AST) 15 U/L (13-40) Alanine Aminotransferase (ALT) 33 U/L (7-40) Alkaline Phosphatase 72 U/L (46-116) Total Protein 6.6 g/dL (5.7-8.2) Albumin 4.3 g/dL (3.2-4.8) Urine Color Yellow (Yellow) Urine Clarity Clear (Clear) Urine pH 5.5 (5.0-9.0) Urine Specific [place] 1.037 (1.001-1.035) Urine Protein Trace (Negative) Urine Ketones Negative (Negative) Urine Blood Negative /uL (Negative) Urine Nitrite Negative (Negative) Urine Bilirubin Negative (Negative) Urine Urobilinogen Normal mg/dL (Negative) Urine Leukocyte Esterase Negative /uL (Negative) Urine RBC 1 /hpf (0 - 3) Urine Microscopic WBC 6 /HPF (0-3) Urine Squamous Epithelial Cells Few /hpf (<5) Urine Bacteria None seen /hpf (None Seen) Urine Hyaline Casts Few /lpf (0 - 2) Urine Mucus Few (None Seen) Urine Glucose Normal mg/dL (Normal) Lipase 42 U/L (12-53) Other Laboratory Tests 03/14/25 16:40 Brief Hx & Hospital Course: 34-year-old male who was recently hospitalized at [facility] for abdominal pain, acute cholecystitis has been ruled out presented to the hospital for worsening abdominal pain nausea vomiting found to have gastric antral perforation. Currently on NG-tube strict NPO and IV antibiotics. General surgery management with the patient we will recommended higher level of care because of the gastric perforation which can not be handled UTI. Patient was kept NPO on NG tube on broad-spectrum IV antibiotics. Patient at bedside home explained that patient is higher level of care they currently on distended verbalized understanding and agreeable to plan. All the people monitor has been signed. Stage Driver has been consulted stat for higher level of care for this patient. Condition at Discharge: Higher Level of Care Final Diagnosis/Problems List 1. Gastric antrum perforation 2. Peptic ulcer disease 3. Abdominal pain nausea vomiting due to 1. 3. Morbid obesity classI Discharge Disposition: Acute Care Facility SNF Discharge Will this Physician continue t: No Discharge Instruct/Medications Diet: See Comment Diet comment: NPO, NG tube Activity: Bed rest Follow Up/Referral: Follow up at higher level of care. Medications: Reconcile Discharge Statement: "Patient was advised to return to the ER or call 911 if any headaches, dizziness, shortness of breath, chest pain, abdominal pain, bleeding, fevers, or worsening of medical condition. Patient was counseled about treatment plan, medications, possible side effects, patientverbalized understanding. All questions were answered to the best of my ability. This discharge took greater then 30 minutes in planning, reviewing documentation, counseling the patient, and discussing with other team members." ASSESSMENT ASSESSMENT Assessment 1. Gastric antrum perforation 2. Peptic ulcer disease 3. Abdominal pain nausea vomiting due to 1. 3. Morbid obesity classI Date of Service: Mar 14, 2025 Billing Provider: SONNY HARRIS MD Common Visit Codes: 76263-WOX/OBS DISCH DAY >30min SONNY HARRIS MD Mar 14, 2025 18:41
[2025-03-14 20:26] LABS: INR 1.33 (0.9-1.15); Partial Thromboplastin Time 29.3 SEC (24.5-34.5); Prothrombin Time 13.7 sec (9.3-11.8)
[2025-03-15] VITALS (57 sets, daily range): BP systolic 104–141; BP diastolic 59–93; PULSE 82–123; RESP 15–29; TEMP 99.4–100.8; O2SAT 91–98
[2025-03-15 04:18] LABS: Hematocrit 38.0 % (41.0-53.0); Mean Corpuscular Hemoglobin 23.1 pg (28.0-32.0); Mean Corpuscular Volume 72.3 fL (80.0-100.0)
[2025-03-15 04:24] LABS: Hemoglobin 12.2 g/dL (13.5-17.5); Nucleated Red Blood Cells % 0.1 %
[2025-03-15 04:33] LABS: Alanine Aminotransferase 24 U/L (7-40); Albumin 3.8 g/dL (3.2-4.8); Alkaline Phosphatase 67 U/L (46-116); Anion Gap 8 (5-15); BUN/Creatinine Ratio 11.6 (10.0-20.0); Bilirubin, Total 1.1 mg/dL (0.2-1.0); Blood Urea Nitrogen 10 mg/dL (9-23); Carbon Dioxide 25 mmol/L (20-31); Chloride 103 mmol/L (98-107); Glucose 95 mg/dL (74-106); Magnesium 1.8 mg/dL (1.6-2.6); Potassium 4.1 mmol/L (3.5-5.1); Total Protein 5.9 g/dL (5.7-8.2)
[2025-03-15 04:56] LABS: Calcium 8.7 mg/dL (8.7-10.4); Sodium 136 mmol/L (136-145)
--- NOTE | 2025-03-15 09:16 | DVHPN2 ---
Progress Note Date Seen: Mar 15, 2025 Medical Necessity Reason Pt with a Central, PICC or Fol: No Objective vital signs Vital Sign Date Time Temp Pulse Resp B/P (MAP) Pulse Ox O2 Delivery O2 Flow Rate FiO2 03/15/25 08:30 99.4 100 26 128/80 (96) 98 99.4 03/15/25 07:46 Nasal Cannula* 2 28 Total Intake and Output 03/14/25 03/14/25 03/15/25 15:00 23:00 07:00 Intake Total 120 ml 2260 ml 1207 ml Output Total 750 ml 970 ml Balance 120 ml 1510 ml 237 ml medications Current Medications Medications Dose Ordered Sig/Caryl Route Start Time Stop Time Status Last Admin Dose Admin Pantoprazole Sodium 40 mg DAILY IV 03/14/25 10:00 03/15/25 08:36 40 MG Sodium Chloride 1,000 ml @ 120 mls/hr Q8H20M IV 03/14/25 03:15 03/15/25 06:35 120 MLS/HR Ondansetron HCl 4 mg Q4HP PRN IV 03/14/25 03:15 Hold Docusate Sodium 100 mg BIDPRN PRN PO 03/14/25 03:15 Acetaminophen 650 mg Q6HP PRN PO 03/14/25 03:15 Nitroglycerin 0.4 mg Q5MINP PRN SL 03/14/25 05:30 Morphine Sulfate 2 mg Q30M PRN IV 03/14/25 05:30 Metoclopramide HCl 10 mg Q6HPRN PRN IV 03/14/25 07:15 Piperacillin Sod/ Tazobactam Sod 100 ml @ 25 mls/hr Q6HR IV 03/14/25 12:00 03/15/25 05:43 25 MLS/HR Hydromorphone HCl 0.5 mg Q3HPRN PRN IV 03/14/25 15:45 03/15/25 05:56 0.5 MG Metronidazole 100 ml @ 100 mls/hr Q8HR IV 03/14/25 22:00 03/15/25 05:42 100 MLS/HR laboratory and microbiology Laboratory Tests 03/15/25 03:36 Test 03/15/25 03:36 Range/Units Serum Glucose 95 74-106 mg/dL Microbiology Date/Time Source Procedure Growth Status 03/14/25 00:52 Blood Blood Culture - Preliminary NO GROWTH AFTER 24 HOURS OF INCUBATION. Resulted Problem List/Assessment/Plan Problem List/Assessment/Plan AFEBRILE T MAX 100.3 VSS ABD SOFT LESS TENDER LESS DISTENDED NG IN PLACE 50 CC CLEAR NO BM NO FLATUS WBC TRENDING DOWN LACTATE WNL KUB NO INDICATION OF FREE AIR POSSIBLE CONTAINED GASTRIC PERFORATION ETIOLOGY UNCLEAR POSSIBLE SEVERE GASTRITIS TRANSFER TO [facility]. PT ACCEPTED FAMILY AND NURSE AT BEDSIDE PLAN OF CARE EXPLAINED CONTINUE CLOSE OBSERVATION Plan discussed with: Patient My Orders My Orders Orders - HARESH TAYLOR MD Procedure Category Date Status Time Transfer Orders XFER 03/14/25 Transmitted 11:00 Place Ng ORDERS 03/14/25 Transmitted 11:54 Hydromorphone PHA 03/14/25 In Process Injection (Dilaudid 15:45 Kub Abdomen Single XY 03/14/25 Resulted View 15:33 * Gi Dvh Photograph Mounter CONS 03/14/25 Transmitted 20:29 Transfer Orders XFER 03/15/25 Transmitted 08:45 HARESH TAYLRO MD Mar 15, 2025 09:16
--- NOTE | 2025-03-15 09:40 | DVHINCON2 ---
Date of service: Mar 15, 2025 Referring Physician Tarik Davies Reason for Consultation Gastric perforation History of Present Illness The patient is a 34-year-old male with no significant past medical history, other than appendectomy admitted with abdominal pain for one week. Imaging tests show gastric perforation. Patient was evaluated by Dr. Davies and patient is currently slated to be transferred to a higher level of care facility. Patient denies any prior history of peptic ulcer disease, history of aspirin or NSAID use, history of endoscopy, history of GI bleeding or melena. Patient is currently resting in bed with a NG tube, and denies any changes in his status as he awaits transfer. Patient's at bedside states that the patient has been having intermittent abdominal pain for months. He was previously diagnosed with gastritis however he has not had a prior endoscopy. Past Medical History As above Past Surgical History As above Family History No gastrointestinal diseases or malignancies in the family Social History Denies tobacco, alcohol or recreational drug use Allergies: Coded Allergies: No Known Drug Allergy (Verified Allergy, Unknown, 03/13/25) Current Medications Current Medications Medications (Trade) Dose Ordered Sig/Caryl Route PRN Reason Start Time Stop Time Status Last Admin Metronidazole 100 ml @ 100 mls/hr Q8HR IV 03/14/25 14:00 03/14/25 15:37 DC Pantoprazole Sodium (Protonix) 40 mg DAILY IV 03/14/25 10:00 03/15/25 08:36 Piperacillin Sod/ Tazobactam Sod 100 ml @ 25 mls/hr Q6HR IV 03/14/25 12:00 03/15/25 05:43 Morphine Sulfate 2 mg Q4HPRN PRN IV MODERATE PAIN (4-6 PAIN SCALE) 03/14/25 12:45 03/14/25 12:54 DC Morphine Sulfate 2 mg Q4HPRN PRN IV SEVERE PAIN (7-10 PAIN SCALE) 03/14/25 13:00 03/14/25 14:47 DC 03/14/25 12:57 Hydromorphone HCl (Dilaudid Injection) 0.5 mg Q4HPRN PRN IV PAIN SCALE 7 THRU 10 03/14/25 15:00 03/14/25 15:35 DC Hydromorphone HCl (Dilaudid Injection) 0.5 mg Q3HPRN PRN IV PAIN SCALE 7 THRU 10 03/14/25 15:45 03/15/25 09:23 Metronidazole 100 ml @ 100 mls/hr Q8HR IV 03/14/25 22:00 03/15/25 05:42 Review of Systems 12 point review of systems negative other than HPI Vital Signs Vital Signs Date Time Temp Pulse Resp B/P (MAP) Pulse Ox O2 Delivery O2 Flow Rate FiO2 03/15/25 09:23 103 24 116/80 03/15/25 08:30 99.4 98 99.4 03/15/25 07:46 Nasal Cannula* 2 28 Physical Exam General: Alert and oriented x4 lying in bed mild distress HEENT: NC/AT EOMI PERRLA, NG tube in nose Heart: Tachycardia regular rhythm lungs: Clear to auscultation bilaterally anteriorly Abdomen: Soft, [id number] tenderness to palpation Extremity: No clubbing cyanosis or edema Labs/Diagnostic Data Labs Test 03/15/25 03:36 03/14/25 18:52 03/14/25 16:40 03/14/25 04:10 Range/Units White Blood Count 19.3 H 4.4-10.8 10^3/uL Red Blood Count 5.26 4.5-5.90 10^6/uL Hemoglobin 12.2 L 13.5-17.5 g/dL Hematocrit 38.0 L 41.0-53.0 % Mean Corpuscular Volume 72.3 L 80.0-100.0 fL Mean Corpuscular Hemoglobin 23.1 L 28.0-32.0 pg Mean Corpuscular Hemoglobin Concent 32.0 32.0-36.0 g/dL Red Cell Distribution Width 17.1 H 11.8-14.3 % Platelet Count 343 140-450 10^3/uL Mean Platelet Volume 8.4 6.9-10.8 fL Neutrophils (%) (Auto) 84.7 H 37.0-80.0 % Lymphocytes (%) (Auto) 7.6 L 10.0-50.0 % Monocytes (%) (Auto) 7.4 0.0-12.0 % Eosinophils (%) (Auto) 0.2 0.0-7.0 % Basophils (%) (Auto) 0.1 0.0-2.0 % Neutrophils # (Auto) 16.3 H 1.6-8.6 10 ^3/uL Lymphocytes # (Auto) 1.5 0.4-5.4 10 ^3/uL Monocytes # (Auto) 1.4 H 0-1.3 10 ^3/uL Eosinophils # (Auto) 0 0-0.8 10 ^3/uL Basophils # (Auto) 0 0-0.2 10 ^3/uL Nucleated Red Blood Cells 0.1 % Sodium Level 136 136-145 mmol/L Potassium Level 4.1 3.5-5.1 mmol/L Chloride Level 103 98-107 mmol/L Carbon Dioxide Level 25 20-31 mmol/L Anion Gap 8 5-15 Blood Urea Nitrogen 10 9-23 mg/dL Creatinine 0.86 0.700-1.30 mg/dL Glomerular Filtration Rate Calc 117 >90 mL/min BUN/Creatinine Ratio 11.6 10.0-20.0 Serum Glucose 95 74-106 mg/dL Calcium Level 8.7 8.7-10.4 mg/dL Magnesium Level 1.8 1.6-2.6 mg/dL Total Bilirubin 1.1 H 0.2-1.0 mg/dL Aspartate Amino Transferase (AST) 13 13-40 U/L Alanine Aminotransferase (ALT) 24 7-40 U/L Alkaline Phosphatase 67 46-116 U/L Total Protein 5.9 5.7-8.2 g/dL Albumin 3.8 3.2-4.8 g/dL Prothrombin Time 13.7 H 9.3-11.8 sec Prothrombin Time INR 1.33 H 0.9-1.15 Activated Partial Thromboplast Time 29.3 24.5-34.5 SEC Lactic Acid Level 1.8 0.4-2.0 mmol/L Phosphorus Level 3.6 2.4-5.1 mg/dL Urine Color Yellow Yellow Urine Clarity Clear Clear Urine pH 5.5 5.0-9.0 Urine Specific [place] 1.037 H 1.001-1.035 Urine Protein Trace H Negative Urine Ketones Negative Negative Urine Blood Negative Negative /uL Urine Nitrite Negative Negative Urine Bilirubin Negative Negative Urine Urobilinogen Normal Negative mg/dL Urine Leukocyte Esterase Negative Negative /uL Urine RBC 1 0 - 3 /hpf Urine Microscopic WBC 6 H 0-3 /HPF Urine Squamous Epithelial Cells Few <5 /hpf Urine Bacteria None seen None Seen /hpf Urine Hyaline Casts Few 0 - 2 /lpf Urine Mucus Few None Seen Urine Glucose Normal Normal mg/dL Test 03/13/25 23:25 Range/Units Lipase 42 12-53 U/L Microbiology Date/Time Source Procedure Growth Status 03/14/25 00:52 Blood Blood Culture - Preliminary NO GROWTH AFTER 24 HOURS OF INCUBATION. Resulted Thickening of the gastric antrum with surrounding inflammatory change and scattered trace pneumoperitoneum and trace free fluid. This is most consistent with perforation of the gastric antrum. Assessment 1. Abdominal pain 2. Leukocytosis 3. Gastric perforation Perforation likely due to complicated peptic ulcer disease was untreated Problems(with codes): (1) Leukocytosis (2) Gastric perforation (3) Elevated lactic acid level (4) Acute abdominal pain Plan/Recommendation 1. Continue with the Protonix 2. Transfer as indicated 3. Continue antibiotics 4. No indication for EGD Plan discussed with: Patient, Spouse JAMA SEVERINO MD Mar 15, 2025 09:40
[2025-03-15] MEDS: ACETAMINOPHEN 650 MG RECT SUPP PR PRN (15:15)
--- NOTE | 2025-03-15 15:42 | DVH ---
EXAM: XY KUB ABDOMEN SINGLE VIEW HISTORY: ABD PAIN COMPARISON: XY KUB ABDOMEN SINGLE VIEW on DOS: 03/14/25, CT CT AB PEL WO CON-NO ORAL OR IV on DOS: TECHNIQUE: Single AP of the abdomen and pelvis was obtained. Findings: Frontal view of the abdomen demonstrates a nonobstructive bowel gas pattern. No visualized renal calc kishor. There is no evidence of an acute fracture, dislocation, blastic, or lytic lesions. The visualized portions of the lung bases are unremarkable. Enteric tube is overlying the plane of the stomach. No superficial soft tissue abnormalities. Impression: 1. Nonobstructive bowel gas pattern.
[2025-03-16] VITALS (37 sets, daily range): BP systolic 116–155; BP diastolic 66–89; PULSE 61–118; RESP 15–26; TEMP 97.8–99.9; O2SAT 89–98
[2025-03-16 06:04] LABS: Hematocrit 34.6 % (41.0-53.0); Hemoglobin 11.1 g/dL (13.5-17.5); Mean Corpuscular Hemoglobin 23.1 pg (28.0-32.0); Mean Corpuscular Volume 71.8 fL (80.0-100.0); Nucleated Red Blood Cells % 0.0 %
[2025-03-16 06:21] LABS: Alanine Aminotransferase 15 U/L (7-40); Albumin 3.8 g/dL (3.2-4.8); Alkaline Phosphatase 81 U/L (46-116); Anion Gap 9 (5-15); BUN/Creatinine Ratio 11.7 (10.0-20.0); Bilirubin, Total 0.9 mg/dL (0.2-1.0); Carbon Dioxide 25 mmol/L (20-31); Chloride 100 mmol/L (98-107); Glucose 85 mg/dL (74-106); Magnesium 1.8 mg/dL (1.6-2.6); Potassium 4.1 mmol/L (3.5-5.1); Total Protein 5.9 g/dL (5.7-8.2)
[2025-03-16 06:23] LABS: Blood Urea Nitrogen 9 mg/dL (9-23); Calcium 8.6 mg/dL (8.7-10.4); Sodium 134 mmol/L (136-145)
[2025-03-16] MEDS: FLUCONAZOLE 200MG/100ML 100 ML IV SCH (14:53)
--- NOTE | 2025-03-16 17:58 | DVHPN2 ---
Progress Note Date Seen: Mar 16, 2025 Medical Necessity Reason Pt with a Central, PICC or Fol: No Objective vital signs Vital Sign Date Time Temp Pulse Resp B/P (MAP) Pulse Ox O2 Delivery O2 Flow Rate FiO2 03/16/25 17:31 97.8 102 23 95 03/16/25 16:30 03/16/25 16:00 Nasal Cannula* 3 32 Total Intake and Output 03/15/25 03/15/25 03/16/25 15:00 23:00 07:00 Intake Total 1223 ml 1160 ml 1202.5 ml Output Total 150 ml 1900 ml Balance 1223 ml 1010 ml -697.5 ml medications Current Medications Medications Dose Ordered Sig/Caryl Route Start Time Stop Time Status Last Admin Dose Admin Pantoprazole Sodium 40 mg DAILY IV 03/14/25 10:00 03/16/25 09:48 40 MG Sodium Chloride 1,000 ml @ 120 mls/hr Q8H20M IV 03/14/25 03:15 03/16/25 13:51 120 MLS/HR Ondansetron HCl 4 mg Q4HP PRN IV 03/14/25 03:15 Hold Docusate Sodium 100 mg BIDPRN PRN PO 03/14/25 03:15 Nitroglycerin 0.4 mg Q5MINP PRN SL 03/14/25 05:30 Morphine Sulfate 2 mg Q30M PRN IV 03/14/25 05:30 Metoclopramide HCl 10 mg Q6HPRN PRN IV 03/14/25 07:15 Piperacillin Sod/ Tazobactam Sod 100 ml @ 25 mls/hr Q6HR IV 03/14/25 12:00 03/16/25 12:06 25 MLS/HR Hydromorphone HCl 0.5 mg Q3HPRN PRN IV 03/14/25 15:45 03/16/25 15:59 0.5 MG Metronidazole 100 ml @ 100 mls/hr Q8HR IV 03/14/25 22:00 03/16/25 13:53 100 MLS/HR Acetaminophen 650 mg Q6HP PRN GA 03/15/25 15:00 03/15/25 15:15 650 MG Fluconazole 100 ml @ 100 mls/hr DAILY IV 03/16/25 14:15 03/16/25 14:53 100 MLS/HR laboratory and microbiology Laboratory Tests 03/16/25 05:38 Test 03/16/25 05:38 Range/Units Serum Glucose 85 74-106 mg/dL Microbiology Date/Time Source Procedure Growth Status 03/14/25 16:40 Nose MRSA Screen - Final Complete 03/14/25 04:10 Voided Urine Urine Culture - Preliminary Resulted 03/14/25 00:52 Blood Blood Culture - Preliminary NO GROWTH AFTER 48 HOURS OF INCUBATION. Resulted Problem List/Assessment/Plan Problem List/Assessment/Plan AFEBRILE T MAX 99 VSS ABD SOFT LESS TENDER LESS DISTENDED NG IN PLACE 40 CC CLEAR NO BM NO FLATUS WBC TRENDING DOWN LACTATE WNL KUB NO INDICATION OF FREE AIR POSSIBLE CONTAINED GASTRIC PERFORATION ETIOLOGY UNCLEAR POSSIBLE SEVERE GASTRITIS TRANSFER TO [facility]. PT ACCEPTED FAMILY AND NURSE AT BEDSIDE PLAN OF CARE EXPLAINED CONTINUE CLOSE OBSERVATION Plan discussed with: Patient Dietary Evaluation Review Comments: 1) Advance diet as medically feasible 2) TPN if NPO > 7 days Expected Outcomes/Goals: GI symptoms to improve Intake meet at least 75% estimated needs FU 2-3 days HARESH TAYLOR MD Mar 16, 2025 17:58
--- NOTE | 2025-03-17 10:37 | DVHINCON2 ---
Date of service: Mar 16, 2025 Allergies: Coded Allergies: No Known Drug Allergy (Verified Allergy, Unknown, 03/13/25) Home Meds No Active Prescriptions or Reported Meds Current Medications Current Medications Medications (Trade) Dose Ordered Sig/Caryl Route PRN Reason Start Time Stop Time Status Last Admin Fluconazole 100 ml @ 100 mls/hr DAILY IV 03/16/25 14:15 03/16/25 20:27 DC 03/16/25 14:53 Vital Signs Vital Signs Date Time Temp Pulse Resp B/P (MAP) Pulse Ox O2 Delivery O2 Flow Rate FiO2 03/16/25 19:45 96 20 97 03/16/25 19:30 98.9 98.9 03/16/25 18:00 Nasal Cannula* 3 32 Labs/Diagnostic Data Labs Test 03/16/25 20:01 03/16/25 05:38 03/14/25 18:52 03/14/25 16:40 Range/Units POC Glucose 90 70-106 mg/dl White Blood Count 19.0 H 4.4-10.8 10^3/uL Red Blood Count 4.81 4.5-5.90 10^6/uL Hemoglobin 11.1 L 13.5-17.5 g/dL Hematocrit 34.6 L 41.0-53.0 % Mean Corpuscular Volume 71.8 L 80.0-100.0 fL Mean Corpuscular Hemoglobin 23.1 L 28.0-32.0 pg Mean Corpuscular Hemoglobin Concent 32.1 32.0-36.0 g/dL Red Cell Distribution Width 16.9 H 11.8-14.3 % Platelet Count 316 140-450 10^3/uL Mean Platelet Volume 8.2 6.9-10.8 fL Neutrophils (%) (Auto) 87.9 H 37.0-80.0 % Lymphocytes (%) (Auto) 4.4 L 10.0-50.0 % Monocytes (%) (Auto) 7.2 0.0-12.0 % Eosinophils (%) (Auto) 0.4 0.0-7.0 % Basophils (%) (Auto) 0.1 0.0-2.0 % Neutrophils # (Auto) 16.7 H 1.6-8.6 10 ^3/uL Lymphocytes # (Auto) 0.8 0.4-5.4 10 ^3/uL Monocytes # (Auto) 1.4 H 0-1.3 10 ^3/uL Eosinophils # (Auto) 0.1 0-0.8 10 ^3/uL Basophils # (Auto) 0 0-0.2 10 ^3/uL Nucleated Red Blood Cells 0.0 % Sodium Level 134 L 136-145 mmol/L Potassium Level 4.1 3.5-5.1 mmol/L Chloride Level 100 98-107 mmol/L Carbon Dioxide Level 25 20-31 mmol/L Anion Gap 9 5-15 Blood Urea Nitrogen 9 9-23 mg/dL Creatinine 0.77 0.700-1.30 mg/dL Glomerular Filtration Rate Calc 120 >90 mL/min BUN/Creatinine Ratio 11.7 10.0-20.0 Serum Glucose 85 74-106 mg/dL Calcium Level 8.6 L 8.7-10.4 mg/dL Magnesium Level 1.8 1.6-2.6 mg/dL Total Bilirubin 0.9 0.2-1.0 mg/dL Aspartate Amino Transferase (AST) 11 L 13-40 U/L Alanine Aminotransferase (ALT) 15 7-40 U/L Alkaline Phosphatase 81 46-116 U/L Total Protein 5.9 5.7-8.2 g/dL Albumin 3.8 3.2-4.8 g/dL Prothrombin Time 13.7 H 9.3-11.8 sec Prothrombin Time INR 1.33 H 0.9-1.15 Activated Partial Thromboplast Time 29.3 24.5-34.5 SEC Lactic Acid Level 1.8 0.4-2.0 mmol/L Phosphorus Level 3.6 2.4-5.1 mg/dL Test 03/14/25 04:10 03/13/25 23:25 Range/Units Urine Color Yellow Yellow Urine Clarity Clear Clear Urine pH 5.5 5.0-9.0 Urine Specific [place] 1.037 H 1.001-1.035 Urine Protein Trace H Negative Urine Ketones Negative Negative Urine Blood Negative Negative /uL Urine Nitrite Negative Negative Urine Bilirubin Negative Negative Urine Urobilinogen Normal Negative mg/dL Urine Leukocyte Esterase Negative Negative /uL Urine RBC 1 0 - 3 /hpf Urine Microscopic WBC 6 H 0-3 /HPF Urine Squamous Epithelial Cells Few <5 /hpf Urine Bacteria None seen None Seen /hpf Urine Hyaline Casts Few 0 - 2 /lpf Urine Mucus Few None Seen Urine Glucose Normal Normal mg/dL Lipase 42 12-53 U/L Microbiology Date/Time Source Procedure Growth Status 03/14/25 16:40 Nose MRSA Screen - Final Complete 03/14/25 04:10 Voided Urine Urine Culture - Preliminary Resulted 03/14/25 00:52 Blood Blood Culture - Preliminary NO GROWTH AFTER 72 HOURS OF INCUBATION. Resulted Problems(with codes): (1) Septic shock (2) Leukocytosis, unspecified (3) Acute abdominal pain (4) Elevated lactic acid level (5) Gastric perforation Plan/Recommendation ASSESSMENT AND PLAN: ID Problem List: \-- Perforated gastric antrum \-- Sepsis (suspected) \-- Epigastric pain \-- Mild abdominal distension Assessment This is a 34 y.o. male, Vito Kee, with no significant past medical history, who presents with acute abdominal pain for the past three days. Imaging revealed thickening of the gastric antrum with surrounding inflammatory changes, trace pneumoperitoneum, and trace free fluid, findings most consistent with a perforated gastric antrum. The patient exhibited epigastric tenderness, mild abdominal distension, and tachycardia on physical exam. Laboratory findings included mild hyponatremia (Na 134), elevated creatinine (1.14), an initial lactic acid of 2.5 (decreased to 1.7 with fluid resuscitation), and WBC of 25.5. Hemoglobin is 15.3 and platelet count 446. Blood pressure has been stable, recent measurements 125/79 and 126/81, heart rate tachycardic at 92 and 123. Oxygen saturation is 95% on room air. Blood and urine cultures have shown no growth to date. Chest X-ray shows low lung volumes, prominence of interstitial markings. Patient is presently NPO and receiving broad spectrum antibiotics (vancomycin, cefepime, and Flagyl). Surgical team is following, and transfer to a higher level of care for further evaluation and surgical correction has been recommended. Plan: \-- Continue vancomycin, cefepime, and Flagyl \-- Consider addition of micafungin if sepsis persists or hemodynamic instability worsens \-- Continue fluid resuscitation and electrolyte repletion as needed in setting of gastric perforation and NPO status \-- Follow-up on blood and urine cultures \-- Monitor in ICU setting. Continue vasopressors as needed to keep MAP above 65 \-- Transfer to higher level of care for further evaluation and surgical intervention as recommended by Dr. Davies Isolation Precautions: Not specified Authorized and Performed by: aleja gardner md Total critical care time: Approximately 76 minutes Due to a high probability of clinically significant, life threatening deterioration, the patient required my highest level of preparedness to intervene emergently and I personally spent this critical care time directly and personally managing the patient. This critical care time included obtaining a history; examining the patient; pulse oximetry; ordering and review of studies; arranging urgent treatment with development of a management plan; evaluation of patient's response to treatment; frequent reassessment; and, discussions with other providers. This critical care time was performed to assess and manage the high probability of imminent, life-threatening deterioration that could result in multi-organ failure. It was exclusive of separately billable procedures and treating other patients and teaching time. \*Assessment and plan was discussed with the patient as written above \*Plan is subject to change pending incorporation of new incoming information/diagnostics. Updates may be added as addendum at the bottom (OR TOP) of this note Thank you for interesting consult. Will continue to follow. Please contact if there are any questions or concerns. Aleja Gardner M.D. [facility] Ph: ? Electronically signed by: Aleja Gardner MD, 03/16/2025 \ History: The patient's chart and medications were reviewed in detail and the patient was seen and examined. History obtained from: patient 34 y.o. male with no past medical history who presents with acute abdominal pain for the past three days, found to have perforated gastric antrum on imaging. No history of prior surgeries, no tobacco, alcohol, or illicit drug use. Review of Systems: A complete 10 system review of systems was completed and negative except as noted in the HPI or here. ROS: -CONSTITUTIONAL: Denies weight loss, fever and chills. -HEENT: Denies changes in vision and hearing. -RESPIRATORY: Denies SOB and cough. -CV: Denies palpitations and chest pain. -GI: Reports abdominal pain. Denies nausea, vomiting, or diarrhea. -: Denies dysuria and urinary frequency. -MSK: Denies myalgia and joint pain. -SKIN: Denies rash and pruritus. -NEUROLOGICAL: Denies headache and syncope. -PSYCHIATRIC: Denies recent changes in mood. Denies anxiety and depression. Past Medical History: No past medical history reported. Past Surgical History: No pertinent surgical history. Home Medications: No home medications reported. Allergies: No Known Allergies Family History: Not provided in transcript. Social History: No history of tobacco, alcohol, or illicit drug use. No further details provided. Social Determinants of Health: Not provided in transcript. Objective: Vital Signs on Arrival: BP: 125/79; Pulse: 92; SpO2: 95% on room air Most Recent Vital Signs: Temp: 98.9 F; BP: 126/81; Pulse: 123; Resp: 23; SpO2: 95% on room air Admission Weight: Not provided in transcript. Physical Exam: General: NAD Neck: Supple. No masses. HEENT: PERRL. Normal lids and conjunctiva. Moist mucous membranes. Oropharynx without lesions, exudates or excessive erythema. Normal appearance of the external aspects of the nose and ears. Heart: Regular rhythm, tachycardic. No murmur. No lower extremity edema. Lungs: Normal respiratory effort. Clear to auscultation bilaterally. No wheezes. No crackles. Abdomen: Soft. Mildly distended. Epigastric tenderness. Non-tender elsewhere. No masses or abdominal hernia. Msk: No digital cyanosis. Normal strength and tone in all 4 limbs Skin: Warm and dry, no rashes. Neuro: Alert. No facial droop or slurred speech. Extra-ocular movements intact. Sensation intact to soft touch in all 4 limbs. Psych: Appropriate mood. Full affect. Oriented to person, place, time, and situation. Lines: Not specified. Diagnostic Studies: Available diagnostic studies were reviewed personally. Significant relevant results and findings are outlined below or addressed in the Assessment and Plan above. Pertinent Imaging: Chest X-ray: -Low lung volumes, prominence of interstitial lung markings. Abdominal imaging: -Thickening of the gastric antrum with surrounding inflammatory changes, trace pneumoperitoneum, trace free fluid consistent with perforated gastric antrum. Laboratory Studies: -WBC: 25.5 -Sodium: 134 -Creatinine: 1.14 -Lactic acid: 2.5 (improved to 1.7 with fluid resuscitation) -Hemoglobin: 15.3 -Platelet count: 446 -Blood and urine cultures: No growth to date (preliminary results) Plan discussed with: Patient ALEJA GARDNER MD Mar 17, 2025 10:37
== END 2025-03-16 20:13 | disposition short-term general hospital (02) | DRG 720 ==
LOC: ER 23:00 → OVERFLOW 03-14 05:29 → ICU CENTRL 03-14 15:25
PROVIDERS: ADMIT Internal Medicine; ATTEND Internal Medicine
DX: A41.9 Sepsis, unspecified organism (principal); K25.5 Chronic or unspecified gastric ulcer with perforation; E87.20 Acidosis, unspecified; D72.829 Elevated white blood cell count, unspecified; Z68.33 Body mass index [BMI] 33.0-33.9, adult; Z90.49 Acquired absence of other specified parts of digestive tract; E66.811 Obesity, class 1
CPT/HCPCS: 36415; 71045; 74018; 74176; 80053; 81001; 82962; 83605; 83690; 83735; 84100; 85025; 85610; 85730; 87040; 87081; 87086; 96365; 96366; 96367; 96375; G0378; J1450; J2405; J2470; J2543; J3490